=== PATIENT | male | born 1995 | race African-American/Black ===

== ENCOUNTER 2025-07-20 21:04 | Inpatient (IN) | payer SELFPAY ==
[2025-07-20 21:05] VITALS: BP 132/90; PULSE 96; RESP 16; TEMP 37.1; O2SAT 98; BMI 22.1
[2025-07-20 21:12] VITALS: PULSE 96; O2SAT 98
[2025-07-20 21:24] LABS: Hematocrit 42.6 % (37-53); Hemoglobin 15.00 g/dL (11.27-16.99); Mean Corpuscular HGB Conc 35.2 g/dL (30-55); Mean Corpuscular Hemoglobin 29.0 pg (27-33); Mean Corpuscular Volume 82.2 fl (82-101); Nucleated Red Blood Cells % 0 %; Platelet Count 208 10^3/cmm (157-399); Red Blood Count 5.18 10^6/uL (3.85-5.65); White Blood Count 7.55 10^3/uL (3.29-11.43)
--- NOTE | 2025-07-20 21:27 | ED.C_ITS ---
HPI - Psych 2 General: Chief Complaint: Psychiatric Symptoms Stated Complaint: MHE Time Seen by Provider: 07/20/25 21:07 Source: patient Mode of arrival: ambulatory Limitations: no limitations History of Present Illness: Patient is a 29-year-old male with past medical history of anxiety and depression who presents to the emergency department accompanied by law enforcement as patient voluntarily called 911 due to suicidal ideations. Patient reportedly has a history of this, states that he was seen at inpatient facility in [place] years ago for similar issues, was discharged on medications but states he has since quit the medications due to insurance purposes. He notes that tonight he was holding a knife and had severe suicidal thoughts where he almost attempted his life by cutting himself, but instead he called 911. He is not reporting any HI or hallucinations and states that his thoughts have resolved but he believes that he needs to be seen again for symptoms. He notes that he has had no appetite, he is endorsing anxiety and depression. Law enforcement is writing affidavit. MD complaint: suicidal ideation Duration: resolved prior to arrival History of same: Yes Associated symptoms: Reports depression and suicidal ideation; Deny auditory hallucinations, visual hallucinations or homicidal ideation If self harm: admits thoughts of self harm and has plan Details of plan: use knife Review of Systems 2 General: Reports: 10 or more systems reviewed and unremarkable except in HPI and below Const: Denies: fever(s), chills or fatigue Eyes: Denies: change in vision ENMT: Denies: throat pain, ear or mastoid pain or nasal discharge Card: Denies: chest pain, palpitations, swelling of feet/ankles or lightheadedness Resp: Denies: dyspnea, productive cough or wheezing GI: Denies: abdominal pain, nausea, vomiting, diarrhea or constipation : Denies: flank pain, difficulty urinating, dysuria or urinary frequency Musc: Denies: neck pain, back pain or joint pain Skin/Breast: Denies: rash Neuro: Denies: headache(s), numbness in extremities or weakness in extremities Psych: Reports: anxiety, depression, change in appetite and suicidal ideation; Denies: visual hallucinations, auditory hallucinations, tactile hallucinations or homicidal ideation Physical Exam 2 Const: COMMON NORMALS: no acute distress, patient oriented x3 and no limitations GENERAL APPEARANCE: cooperative, comfortable and well developed ORIENTATION/CONSCIOUSNESS: Yes awake, Yes oriented to person, Yes oriented to place and Yes oriented to time HENMT: COMMON NORMALS: normocephalic, atraumatic and hearing grossly normal bilaterally HEAD & SCALP: normocephalic and atraumatic Eye: COMMON NORMALS: Equal, round and reactive pupils present, EOMs intact bilaterally and conjunctivae normal CONJUNCTIVA: Yes conjunctivae normal P UPIL: Yes Equal, round and reactive pupils present Neck/C-Spine: COMMON NORMALS: full ROM, supple and no JVD Resp: COMMON NORMALS: normal respiratory effort, No retractions, No use of accessory muscles and clear to auscultation bilaterally AUSCULTATION: clear to auscultation bilaterally Cardio: COMMON NORMALS: no JVD, regular rate, regular rhythm, No clicks present (Cardio), No murmurs present (Cardio) and No rub (Cardio) RATE: r egular rate RHYTHM: regular rhythm Extremity: COMMON NORMALS: normal to inspection, full ROM and capillary refill normal Neuro: COMMON NORMALS: patient oriented x3, moves all extremities, no focal motor deficits and no sensory deficits noted SENSORIUM/ORIENTATION: Yes oriented to person, Yes oriented to place and Yes oriented to time Psych: COMMON NORMALS: mental status grossly normal and Normal thought process present APPEARANCE: Yes grossly normal ACTIVITY/MOTOR BEHAVIOR: Yes appropriate eye contact SPEECH: Yes soft MOOD & AFFECT: Yes depressed mood THOUGHT PROCESS: Normal thought process present THOUGHT CONTENT: No Suicidality present, No Homicidality present and No Hallucination(s) present Skin: COMMON NORMALS: no rashes or lesions noted GENERAL SKIN EXAM: no rashes or lesions noted Course 2 Vital Signs: Vital signs: Vital Signs Temperature 98.8 F 07/20/25 21:05 Pulse Rate 96 07/20/25 21:12 Respiratory Rate 16 07/20/25 21:05 Blood Pressure 132/90 07/20/25 21:05 Pulse Oximetry 98 07/20/25 21:12 Oxygen Delivery Me thod Room Air 07/20/25 21:12 [facility] - Psych Medical Decision Making Patient presented with law enforcement due to suicidal ideation and plan to cut his wrists. He is voluntary adamant, affidavits on his chart. Spoke to Dr. Cisse, who accepts the patient to the neuropsychiatric unit. Patient is cleared medically. Dr. Dykes informed of this patient's case and will put in admit orders. Lab Data 07/20/25 21:19 07/20/25 21:19 Laboratory Results WBC 7.55 10^3/uL (3.29-11.43) 07/20/25 21:19 RBC 5.18 10^6/uL (3.85-5.65) 07/20/25 21:19 Hgb 15.00 g/dL (11.27-16.99) 07/20/25 21:19 Hct 42.6 % (37-53) 07/20/25 21:19 MCV 82.2 fl (82-101) 07/20/25 21:19 MCH 29.0 pg (27-33) 07/20/25 21:19 MCHC 35.2 g/dL (30-55) 07/20/25 21:19 RDW 11.7 % (12.1-15.1) L 07/20/25 21:19 Plt Count 208 10^3/cmm (157-399) 07/20/25 21:19 MPV 10.0 fL (7.4-10.4) 07/20/25 21:19 Neut % (Auto) 80.9 % 07/20/25 21:19 Lymph % (Auto) 14.2 % 07/20/25 21:19 [place] % (Auto) 3.6 % 07/20/25 21:19 Eos % (Auto) 0.7 % 07/20/25 21:19 Baso % (Auto) 0.5 % 07/20/25 21:19 Neut # (Auto) 6.11 10^3/uL (1.8-7.7) 07/20/25 21:19 Lymph # (Auto) 1.1 10^3/uL (0.8-4.8) 07/20/25 21:19 [place] # (Auto) 0.3 10^3/uL (0.2-0.9) 07/20/25 21:19 Eos # (Auto) 0.1 10^3/uL (0.0-0.8) 07/20/25 21:19 Baso # (Auto) 0.0 10^3/uL (0.0-0.1) 07/20/25 21:19 Nucleated RBC % (auto) 0 % 07/20/25 21:19 Nucleated RBCs # 0.0 /100WBC 07/20/25 21:19 Sodium 140 mmol/L (136-145) 07/20/25 21:19 Potassium 4.1 mmol/L (3.5-5.1) 07/20/25 21:19 Chloride 103 mmol/L (98-107) 07/20/25 21:19 Carbon Dioxide 24 mmol/L (22-29) 07/20/25 21:19 Anion Gap 17.1 (5-19) 07/20/25 21:19 BUN 14 mg/dL (6-20) 07/20/25 21:19 Creatinine 1.5 mg/dL (0.7-1.2) H 07/20/25 21:19 GFR Calculation 67.4 mL/min (90-130) L 07/20/25 21:19 Glucose 107 mg/dL (65-115) 07/20/25 21:19 Calculated Osmolality 291 mOsm/kg (285-295) 07/20/25 21:19 Calcium 9.7 mg/dL (8.5-10.5) 07/20/25 21:19 Total Bilirubin 1.2 mg/dL (0.15-1.2) 07/20/25 21:19 AST 31 U/L (0-40) 07/20/25 21:19 ALT 24 U/L (0-41) 07/20/25 21:19 Alkaline Phosphatase 161 U/L (40-130) H 07/20/25 21:19 Total Protein 7.9 g/dL (6.6-8.7) 07/20/25 21:19 Albumin 5.0 g/dL (3.5-5.2) 07/20/25 21:19 Globulin 2.9 g/dL (1.3-4.6) 07/20/25 21:19 Salicylates < 0.3 mg/dL (3-10) L 07/20/25 21:19 Urine Opiates Screen Negative ng/mL (Negative) 07/20/25 21:15 Acetaminophen < 5.0 ug/mL (10-30) L 07/20/25 21:19 Ur Barbiturates Screen Negative ng/mL (Negative) 07/20/25 21:15 Ur Phencyclidine Scrn Negative ng/mL (Negative) 07/20/25 21:15 Ur Amphetamines Screen Negative ng/mL (Negative) 07/20/25 21:15 U Benzodiazepines Scrn Negative ng/mL (Negative) 07/20/25 21:15 Urine Cocaine Screen Negative ng/mL (Negative) 07/20/25 21:15 U Marijuana (THC) Screen Negative ng/mL (Negative) 07/20/25 21:15 Ethyl Alcohol < 10 mg/dL (0-10) 07/20/25 21:19 No radiology studies performed this visit Discharge Plan Discharge Patient Disposition: Admitted As Inpatient Admit Provider: Michael Cisse Clinical Impression: Suicidal ideation Condition: Stable Coding Level of Care Code ED [employer] for [employer]
[2025-07-20 21:30] LABS: PCP Screen Urine Negative (Negative)
[2025-07-20 21:40] LABS: Alanine Aminotransferase 24 U/L (0-41); Albumin Level 5.0 g/dL (3.5-5.2); Alkaline Phosphatase 161 U/L (40-130); Anion Gap 17.1 (5-19); Aspartate Amino Transferase 31 U/L (0-40); Blood Urea Nitrogen 14 mg/dL (6-20); Calcium 9.7 mg/dL (8.5-10.5); Carbon Dioxide 24 mmol/L (22-29); Chloride 103 mmol/L (98-107); Creatinine Clr Calc Pharmacy 72.2147; Globulin 2.9 g/dL (1.3-4.6); Glucose 107 mg/dL (65-115); Osmolality Calculated 291 mOsm/kg (285-295); Potassium 4.1 mmol/L (3.5-5.1); Sodium 140 mmol/L (136-145); Total Protein 7.9 g/dL (6.6-8.7)
[2025-07-20 21:41] LABS: Acetaminophen < 5.0 ug/mL (10-30); Alcohol Level < 10 mg/dL (0-10); Salicylate < 0.3 mg/dL (3-10)
--- NOTE | 2025-07-20 22:20 | PC.NURSE ---
[facility] Pt served with copy of [facility] by this RN and security. Pt A&Ox3. Pt stated he is unfamiliar with [facility] and states he had never been admitted to [facility] NPU. Pt pleasant and cooperative. Pt notified of extended stay in ER.
--- NOTE | 2025-07-20 22:34 | PC.NURSE ---
Pt is resting in bed with a blanket on, pt has tv on, eyes closed and pt resting with no signs of distress.
[2025-07-21 04:00] VITALS: BP 105/67; PULSE 67; O2SAT 97
[2025-07-21 10:40] VITALS: BP 107/81; PULSE 90; RESP 18; TEMP 37.1; O2SAT 99
--- NOTE | 2025-07-21 12:13 | PC.ADMIT ---
[address] Admission Note:Pt states that he has had a lot of stressors lately; relationship with girlfriend, no job, and girlfriend is 2 months . Also the grief of his great grandmothers who passed 5 years ago washes over him. He has ongoing depression with SI and a plan to cut himself. The patient,Jordan Garcia,29 y/o, was given written information regarding hospital policies, unit procedures and contact persons. Patient's smoking status: . Vital Signs - 8 hr 07/21/25 10:40 07/21/25 10:41 Temperature 98.8 F Pulse Rate 90 Respiratory Rate 18 Blood Pressure 107/81 Pulse Oximetry 99 Oxygen Delivery Method Room Air
[2025-07-21 14:00] VITALS: BP 110/76; PULSE 87; RESP 18; TEMP 36.7; O2SAT 98
--- NOTE | 2025-07-21 19:31 | W.PM.NPUH&PS ---
Providers/Chief Complaint Admitting Physician: Michael Cisse MD Chief Complaint: MHE HPI NPU History of Present Illness Jordan Garcia is a 29 year old male who presented to the emergency department with the following report: Chief Complaint: Psychiatric Symptoms Stated Complaint: MHE Time Seen by Provider: 07/20/25 21:07 Source: patient Mode of arrival: ambulatory Limitations: no limitations History of Present Illness: Patient is a 29-year-old male with past medical history of anxiety and depression who presents to the emergency department accompanied by law enforcement as patient voluntarily called 911 due to suicidal ideations. Patient reportedly has a history of this, states that he was seen at inpatient facility in [place] years ago for similar issues, was discharged on medications but states he has since quit the medications due to insurance purposes. He notes that tonight he was holding a knife and had severe suicidal thoughts where he almost attempted his life by cutting himself, but instead he called 911. He is not reporting any HI or hallucinations and states that his thoughts have resolved but he believes that he needs to be seen again for symptoms. He notes that he has had no appetite, he is endorsing anxiety and depression. Law enforcement is writing affidavit. complaint: suicidal ideation Duration: resolved prior to arrival History of same: Yes Associated symptoms: Reports depression and suicidal ideation; Deny auditory hallucinations, visual hallucinations or homicidal ideation If self harm: admits thoughts of self harm and has plan Details of plan: use knife. He was admitted to the neuropsychiatric unit for definitive treatment of those issues. He is known to [facility] psychiatry through inpatient or outpatient services. He reports that he has not had significant inpatient stays but has had some outpatient services. He reports that when he is taking his medications things are solid. He reports some addictive issues in the past but denied issues of concern. He reports that he moved to [place] to connect with a significant other sometime ago and that fell apart. He reports that he started connecting with a person from this area who came out to [place] to see him and then he moved here. He reports that they have a kit on the way and things have been going fine but that he lost access to his medication. He reports that things have been going fine in general and that being off his medication, sending in a tailspin. He reported that at this point he just wants to get his medications restarted and then get back to work. He reports that he had a really good job in [place] and it has been hard on him not having solid employment here which is led to challenges related to his overall functioning. We discussed the risks, benefits and alternatives of restarting his medications and he understood and agreed to proceed as documented in his note. Meds NPU Home Medications ?Medication ?Instructions ?Recorded ?Confirmed ?Last Taken ?Type cetirizine 10 mg tablet (Zyrtec) 10 mg PO DAILY 07/21/25 07/21/25 Unknown History Allergies Allergy/AdvReac Type Severity Reaction Status Date / Time grass pollen Allergy Intermediate ALGY-Conges Verified 07/21/25 08:43 jd Mental Status Exam MSE Comments: This is a slender versus -Tongan male in hospital scrubs with limited grooming and poor eye contact. He has dreds. No abnormal movements except for mild psychomotor retardation. Cooperative with exam in mild to moderate distress. Speech was decreased rate and volume. Mood described as okay but, affect was mostly subdued. Thought process linear to organized. Thought content: Patient did not report suicidal or homicidal ideation, there were no delusions reported or noted. He did not report auditory or visual hallucinations. Attention and concentration were intact and memory was mostly reliable but none were formally tested. He is alert and oriented x 3. Insight, judgment and impulse control are impaired. Vitals/I&O/Wt Last Vital Signs Temp 97.4 F L 07/21/25 20:03 Pulse 78 07/21/25 20:03 Resp 16 07/21/25 20:03 BP 103/76 07/21/25 20:03 Pulse Ox 96 07/21/25 20:03 O2 Del Method Room Air 07/21/25 20:03 07/21/25 07/21/25 07/21/25 06:59 14:59 22:59 Intake Total 0 / 0 Balance 0 / 0 Weight last 48 hrs Weight 68.039 kg Data NPU 07/20/25 21:19 07/20/25 21:19 A&P Assessment and plan 1. Suicidal ideation: 2. Major depressive disorder, recurrent: 3. Social anxiety disorder: Plan: This is a 46-year-old white male with a history of 1. Restart medications. 2. Encourage individual, group and milieu therapies. 3. Continue every 15 minute checks for safety. 4. Evaluate against the backdrop of the 96-hour hold for safety. 5. Obtain collateral information. PDMP PDMP Reviewed: Not Reviewed Involuntary Hold Information Hold Status: Legal Status: 96 Hour Hold Date/Time Hold Expires: 07/26/25 @ 21:32 Attestations NPU Medical Necessity Statement*: Inpatient hospitalization is medically necessary and the clinically appropriate intervention at this time. We will monitor/initiate medications and make changes as indicated. He will be in the hospital for over 2 midnights. Likely length of stay 3-5 days. Coding Level of Care Code Acute Code for Chg Fwd Diagnoses Suicidal ideation R45.851 Major depressive disorder, recurrent F33.9 Social anxiety disorder F40.10
[2025-07-21 20:03] VITALS: BP 103/76; PULSE 78; RESP 16; TEMP 36.3; O2SAT 96
[2025-07-22 06:00] VITALS: BP 111/80; PULSE 95; RESP 17; TEMP 36.8; O2SAT 98
[2025-07-22 14:00] VITALS: BP 109/71; PULSE 90; RESP 16; TEMP 36.4; O2SAT 97
--- NOTE | 2025-07-22 17:28 | P.NPUPN_ITS ---
Subjective NPU 2 Subjective: Patient presented today reporting that things are going better. He identified that he is having issues related to his relationship and being in the hospital. He reports he is starting to feel better with the medication on board and is hopeful that we might be able to discharge him tomorrow. We discussed that we will see how it is doing tomorrow get some collateral information from the significant other and then consider the possibilities. He denied any side effects to the medication. Mental Status Exam 2 MSE Comments: This is a slender versus -Lithuanian male in hospital scrubs with limited grooming and poor eye contact. He has dreds. No abnormal movements except for mild psychomotor retardation. Cooperative with exam in mild to moderate distress. Speech was decreased rate and volume. Mood described as okay but, affect was mostly subdued. Thought process linear to organized. Thought content: Patient did not report suicidal or homicidal ideation, there were no delusions reported or noted. He did not report auditory or visual hallucinations. Attention and concentration were intact and memory was mostly reliable but none were formally tested. He is alert and oriented x 3. Insight, judgment and impulse control are impaired. Vitals/I&O/Wt Last Vital Signs Temp 97.5 F L 07/22/25 14:00 Pulse 90 07/22/25 14:00 Resp 16 07/22/25 14:00 BP 109/71 07/22/25 14:00 Pulse Ox 97 07/22/25 14:00 O2 Del Method Room Air 07/22/25 14:00 07/22/25 07/22/25 07/22/25 06:59 14:59 22:59 Intake Total 0 / 0 Balance 0 / 0 Weight last 48 hrs Weight 68.039 kg Data NPU 07/20/25 21:19 07/20/25 21:19 A&P Assessment and plan 1. Suicidal ideation: 2. Major depressive disorder, recurrent: 3. Social anxiety disorder: Plan: This is a 29-year-old -Lithuanian male with a history of mental health issues and significant psychosocial stressors at home off of his medication for some time leading to decompensation. Open to restarting medications and being connected to services in the area. 1. Restart medications. 2. Encourage individual, group and milieu therapies. 3. Continue every 15 minute checks for safety. 4. Evaluate against the backdrop of the 96-hour hold for safety. 5. Obtain collateral information. PDMP PDMP Reviewed: Not Reviewed Involuntary Hold Information 2 Hold Status: Legal Status: 96 Hour Hold Date/Time Hold Expires: 07/26/25 @ 21:32 Attestations NPU 2 Medical Necessity Statement*: Inpatient hospitalization is medically necessary and the clinically appropriate intervention at this time. We will monitor/initiate medications and make changes as indicated. Likely length of stay 1-3 days. Coding Level of Care Code Acute Code for g Fwd Diagnoses Suicidal ideation R45.851 Major depressive disorder, recurrent F33.9 Social anxiety disorder F40.10
[2025-07-22 20:10] VITALS: BP 126/87; PULSE 89; RESP 19; TEMP 36.6; O2SAT 97
[2025-07-23 06:00] VITALS: BP 110/83; PULSE 92; RESP 17; TEMP 36.7; O2SAT 97
[2025-07-23 12:38] VITALS: BP 102/67; PULSE 94; RESP 18; TEMP 36.6; O2SAT 92
[2025-07-23 13:07] VITALS: BP 117/85; PULSE 95; RESP 18; TEMP 36.6; O2SAT 96
== END 2025-07-23 13:35 | disposition home or self-care (01) | DRG 885 ==
LOC: ER 21:35 → ER IP 21:46 → NP 07-21 09:20
PROVIDERS: Admitting Provider Psychiatry & Neurology Psychiatry; Emergency Provider Physician Assistant; Visit Provider Psychiatry & Neurology Psychiatry
DX: F33.9 Major depressive disorder, recurrent, unspecified (principal); R45.851 Suicidal ideations; F40.10 Social phobia, unspecified; T50.906A Underdosing of unspecified drugs, medicaments and biological substances, initial encounter; Z63.9 Problem related to primary support group, unspecified; Z91.128 Patient's intentional underdosing of medication regimen for other reason
CPT/HCPCS: 36415; 80053; 80306; 80307; 85025; 97150; 97165; 99285; J9999